=== PATIENT | male | born 1955 | race African-American/Black ===

== ENCOUNTER 2017-12-18 15:03 | Observation (INO) | payer OTHER ==
[~2017-12-18] VITALS: Ht 157.5 cm; Wt 96.0 kg
[~2017-12-18 15:03] MED LIST: HYDR-2768; OMEP20CA5; PRIN20TA2
[2017-12-18 15:13] VITALS: BP 195/94; PULSE 72; RESP 17; TEMP 98.6; O2SAT 98
[2017-12-18] MEDS ORDERED: SODIUM CHLORIDE 0.9% FLUSH 10 ML FLUSH IVF PRN (15:15)
[2017-12-18 15:20] VITALS: O2SAT 97
--- NOTE | 2017-12-18 15:27 | PD ---
HPI Chief Complaint: Chest Pain Time Seen by Provider: 15:14 Travel History International Travel<30 days: No Contact w/Intl Traveler<30days: No Traveled to known affect area: No History of Present Illness HPI 62-year-old male states he was having chest pain over the past couple of days. He received aspirin at the [place]. He denies any active chest pain now or with the ambulance team so was not given nitroglycerin. He states he is not sure if he has had a cardiac workup before. He states he is not sure if he has had heart issues before. He denies any other concurrent complaints. Quality is heaviness when present. Severity is currently resolved. Duration is couple of days. Patient is a poor historian. [facility] Past Medical History High Cholesterol: Yes Hypertension: Yes Past Surgical History Surgical History: No Previous Surgery Social History Alcohol Use: No (quit 5 years ago) Tobacco Use: No Substance Use: No Allergies-Medications (Allergen,Severity, Reaction): Coded Allergies: No Known Allergies (Verified Allergy, Mild, 12/11/06) Reported Meds & Prescriptions Reported Meds & Active Scripts Active Review of Systems Except as stated in HPI: all other systems reviewed are Neg Physical Exam Narrative GENERAL: 62-year-old male in no apparent distress SKIN: Focused skin assessment warm/dry. HEAD: Atraumatic. Normocephalic. EYES: Pupils equal and round. No scleral icterus. No injection or drainage. ENT: No nasal bleeding or discharge. Mucous membranes pink and moist. NECK: Trachea midline. CARDIOVASCULAR: Regular rate and rhythm. No murmur appreciated. RESPIRATORY: No accessory muscle use. Clear to auscultation. Breath sounds equal bilaterally. GASTROINTESTINAL: Abdomen soft, non-tender, nondistended. MUSCULOSKELETAL: No obvious deformities. No clubbing. No cyanosis. NEUROLOGICAL: Awake. Motor grossly within normal limits. Normal speech. Data Data Last Documented VS Vital Signs Date Time Temp Pulse Resp B/P (MAP) Pulse Ox O2 Delivery O2 Flow Rate FiO2 12/18/17 15:13 98.6 72 17 195/94 (127) 98 Orders Orders Electrocardiogram (12/18/17 15:15) Ckmb (Isoenzyme) Profile (12/18/17 15:15) Complete Blood Count With Diff (12/18/17 15:15) Comprehensive Metabolic Panel (12/18/17 15:15) Magnesium (Mg) (12/18/17 15:15) Prothrombin Time / Inr (Pt) (12/18/17 15:15) Act Partial Throm Time (Ptt) (12/18/17 15:15) Troponin I (12/18/17 15:15) Lipase (12/18/17 15:15) Chest, Single Ap (12/18/17 15:15) Ecg Monitoring (12/18/17 15:15) Bilateral Bp Monitoring (12/18/17 15:15) Iv Access Insert/Monitor (12/18/17 15:15) Oximetry (12/18/17 15:15) Sodium Chloride 0.9% Flush (Ns Flush) (12/18/17 15:15) Alcohol (Ethanol) (12/18/17 15:15) Drug Screen, Random Urine (12/18/17 15:15) CKMB (12/18/17 15:31) CKMB% (12/18/17 15:31) Admit Order (Ed Use Only) (12/18/17 16:37) Labs Laboratory Tests Test 12/18/17 15:31 12/18/17 16:11 White Blood Count 6.5 TH/MM3 Red Blood Count 4.46 MIL/MM3 Hemoglobin 11.9 GM/DL Hematocrit 35.5 % Mean Corpuscular Volume 79.6 FL Mean Corpuscular Hemoglobin 26.6 PG Mean Corpuscular Hemoglobin Concent 33.5 % Red Cell Distribution Width 15.5 % Platelet Count 263 TH/MM3 Mean Platelet Volume 8.8 FL Neutrophils (%) (Auto) 57.2 % Lymphocytes (%) (Auto) 28.9 % Monocytes (%) (Auto) 7.0 % Eosinophils (%) (Auto) 5.9 % Basophils (%) (Auto) 1.0 % Neutrophils # (Auto) 3.7 TH/MM3 Lymphocytes # (Auto) 1.9 TH/MM3 Monocytes # (Auto) 0.5 TH/MM3 Eosinophils # (Auto) 0.4 TH/MM3 Basophils # (Auto) 0.1 TH/MM3 CBC Comment DIFF FINAL Differential Comment Prothrombin Time 11.0 SEC Prothromb Time International Ratio 1.1 RATIO Activated Partial Thromboplast Time 29.6 SEC Blood Urea Nitrogen 9 MG/DL Creatinine 1.16 MG/DL Random Glucose 88 MG/DL Total Protein 8.0 GM/DL Albumin 4.0 GM/DL Calcium Level 8.7 MG/DL Magnesium Level 2.0 MG/DL Alkaline Phosphatase 65 U/L Aspartate Amino Transf (AST/SGOT) 18 U/L Alanine Aminotransferase (ALT/SGPT) 30 U/L Total Bilirubin 0.4 MG/DL Sodium Level 141 MEQ/L Potassium Level 3.5 MEQ/L Chloride Level 105 MEQ/L Carbon Dioxide Level 31.2 MEQ/L Anion Gap 5 MEQ/L Estimat Glomerular Filtration Rate 77 ML/MIN Total Creatine Kinase 283 U/L Creatine Kinase MB 3.6 NG/ML Troponin I LESS THAN 0.02 NG/ML Lipase 139 U/L Ethyl Alcohol Level 5 MG/DL MDM Medical Decision Making Medical Screen Exam Complete: Yes Emergency Medical Condition: Yes Medical Record Reviewed: Yes (Past history confirmed) Interpretation(s) CBC & BMP Diagram 12/18/17 15:31 Total Protein 8.0, Albumin 4.0, Calcium Level 8.7, Magnesium Level 2.0, Alkaline Phosphatase 65, Aspartate Amino Transf (AST/SGOT) 18, Alanine Aminotransferase (ALT/SGPT) 30, Total Bilirubin 0.4 Last 24 hours Impressions Chest X-Ray 12/18/17 1515 Signed Impressions: Service Date/Time: Monday, December 18, 2017 15:55 - CONCLUSION: No acute disease. John Hummel MD Differential Diagnosis CO, gastritis, musculoskeletal, pancreatitis Narrative Course We will check blood work, EKG, chest x-ray and reevaluate ED workup no acute, will place and chest pain center observation for further care given risk factors Diagnosis Primary Impression: Chest pain Qualified Codes: R07.9 - Chest pain, unspecified Admitting Information Admitting Physician Requests: Observation Elicia Lazcano MD Dec 18, 2017 15:27
[2017-12-18 15:53] LABS: AUTOMATED NEUTROPHIL # 3.7 TH/MM3 (1.8-7.7); BASOPHIL # 0.1 TH/MM3 (0-0.2); EOSINOPHIL # 0.4 TH/MM3 (0-0.4); EOSINOPHIL % 5.9 % (0.0-4.0); HEMATOCRIT 35.5 % (39.0-51.0); HEMOGLOBIN 11.9 GM/DL (13.0-17.0); LYMPH % 28.9 % (9.0-44.0); LYMPHOCYTE # 1.9 TH/MM3 (1.0-4.8); MEAN CELL VOLUME 79.6 FL (80.0-100.0); MEAN CORPUSCULAR HEMOGLOBIN 26.6 PG (27.0-34.0); MEAN CORPUSCULAR HGB CONC 33.5 % (32.0-36.0); MEAN PLATELET VOLUME 8.8 FL (7.0-11.0); MONOCYTE # 0.5 TH/MM3 (0-0.9); NEUT % 57.2 % (16.0-70.0); PLATELET COUNT 263 TH/MM3 (150-450); RED BLOOD COUNT 4.46 MIL/MM3 (4.50-5.90); RED CELL DISTRIBUTION WIDTH 15.5 % (11.6-17.2); WHITE BLOOD COUNT 6.5 TH/MM3 (4.0-11.0)
[2017-12-18 16:02] LABS: AST (GOT) 18 U/L (15-37); BICARBONATE 31.2 MEQ/L (21.0-32.0); BLOOD UREA NITROGEN 9 MG/DL (7-18); CALCIUM 8.7 MG/DL (8.5-10.1); CHLORIDE 105 MEQ/L (98-107); CREATININE 1.16 MG/DL (0.60-1.30); GLOMERULAR FILTRATION RATE 77 ML/MIN (>89); GLUCOSE,RANDOM 88 MG/DL (74-106); SODIUM (NA) 141 MEQ/L (136-145)
[2017-12-18 16:03] LABS: ALT (GPT) 30 U/L (12-78); INTERNATIONAL NORMALIZED RATIO 1.1 RATIO
[2017-12-18 16:06] LABS: ALKALINE PHOSPHATASE 65 U/L (45-117); TOTAL BILIRUBIN ADULT 0.4 MG/DL (0.2-1.0); TROPONIN I LESS THAN 0.02 NG/ML (0.02-0.05)
--- NOTE | 2017-12-18 16:14 | RADRPT ---
EXAM DATE/TIME: 12/18/2017 15:55 [facility] COMPARISON: No previous studies available for comparison. INDICATIONS : Blood pressure, sent by the dr. MEDICAL HISTORY : Diabetes mellitus type II. high blood pressure SURGICAL HISTORY : None. ENCOUNTER: Initial ACUITY: 1 day PAIN SCORE: 0/10 LOCATION: Bilateral chest FINDINGS: A single view of the chest demonstrates the lungs to be symmetrically aerated without evidence of mas s, infiltrate or effusion. The cardiomediastinal contours are unremarkable. Osseous structures are intact. CONCLUSION: No acute disease. John Hummel MD on December 18, 2017 at 16:11 Board Certified Radiologist. This report was verified electronically.
--- NOTE | 2017-12-18 17:12 | HHI.HP ---
HPI Primary Care Physician [facility] Chief Complaint Chest pain History of Present Illness This is a 62-year-old male history of hypertension, hyperlipidemia, diabetes that presents to the ED at the request of the [facility] to be treated for hypertension. States that he went there for his regular checkup as a been trying to get his blood pressure under control. Patient readily admits he has not taken his blood pressure medicine in 4 days, states the medications were in a hotel in [facility] and he was staying in [place]. When asked specifically if he had been having any chest discomfort patient responds "no." He may be coming her to get my blood pressure under control. Then after talking longer he states "well, might have had a little chest pressure while he was laying down waiting for the ambulance." In light of lasted a couple minutes. Denies shortness of breath, nausea, or diaphoresis. Review of Systems General: Patient denies fevers, chills,, and recent travel. HEENT: Patient denies headache, sore throat, difficulty swallowing. Cardiovascular: Has the chest discomfort as mentioned above. Denies sensation of heart beating rapidly or irregularly. No syncope. Respiratory: Denies shortness of breath or inspirational chest discomfort. Denies coughing wheezing or hemoptysis. GI: Patient denies nausea, vomiting, diarrhea, abdominal pain, bloody stools. Musculoskeletal: Patient denies joint pain or edema. Denies calf pain or edema. Neurovascular: Patient denies numbness, tingling, weakness in extremities. Denies headache. Endocrine: Denies polyuria and polydipsia. Hematologic: Denies easy bruising. Skin: Denies rash or itching. Past Family Social History Allergies: Coded Allergies: No Known Allergies (Verified Allergy, Mild, 12/11/06) Past Medical History Hypertension, hyperlipidemia, diabetes. Denies known CAD. Past Surgical History Noncontributory. Reported Medications Reported Meds & Active Scripts Active Active Ordered Medications Current Medications Medications (Trade) Dose Ordered Sig/Rima Route Start Time Stop Time Status Last Admin (NS Flush) 2 ml UNSCH PRN IVF 12/18/17 15:15 Family History Denies family history of CAD. Social History Quit smoking 20 years ago and also quit drinking alcohol 20 years ago. Prior to that he was smoked about one half pack of cigarettes daily for 20 years. Denies illicit drug use. He was staying [facility] a [facility] [place] [facility] but states he was kicked out after being gone for 4 days. Physical Exam Vital Signs Vital Signs Date Time Temp Pulse Resp B/P (MAP) Pulse Ox O2 Delivery O2 Flow Rate FiO2 12/18/17 15:13 98.6 72 17 195/94 (127) 98 Physical Exam GENERAL: This is a well-nourished, well-developed patient, in no apparent distress. Patient speaks in clear complete sentences. Patient is pleasant. HEENT: Head is atraumatic and normocephalic. Neck is supple without lymphadenopathy and trachea is midline. No JVD or carotid bruits. CARDIOVASCULAR: Regular rate and rhythm without murmurs, gallops, or rubs. RESPIRATORY: Clear to auscultation. Breath sounds equal bilaterally. No wheezes , rales, or rhonchi. Chest wall is nontender. No use of accessory muscles. GASTROINTESTINAL: Abdomen is nontender, nondistended. Abdomen soft. No obvious pulsatile mass or bruit. No CVA tenderness. Strong femoral pulses bilaterally. Normal bowel sounds in all quadrants. MUSCULOSKELETAL: Patient is moving upper and lower extremities freely. No calf tenderness or edema, no Homans sign. Strong pulses in upper and lower extremities. NEUROLOGICAL: Patient is alert and oriented. Cranial nerves 2-12 are grossly intact. No focal deficits and speech is clear. SKIN: No rash and turgor is normal. Laboratory Laboratory Tests Test 12/18/17 15:31 12/18/17 16:11 White Blood Count 6.5 Red Blood Count 4.46 Hemoglobin 11.9 Hematocrit 35.5 Mean Corpuscular Volume 79.6 Mean Corpuscular Hemoglobin 26.6 Mean Corpuscular Hemoglobin Concent 33.5 Red Cell Distribution Width 15.5 Platelet Count 263 Mean Platelet Volume 8.8 Neutrophils (%) (Auto) 57.2 Lymphocytes (%) (Auto) 28.9 Monocytes (%) (Auto) 7.0 Eosinophils (%) (Auto) 5.9 Basophils (%) (Auto) 1.0 Neutrophils # (Auto) 3.7 Lymphocytes # (Auto) 1.9 Monocytes # (Auto) 0.5 Eosinophils # (Auto) 0.4 Basophils # (Auto) 0.1 CBC Comment DIFF FINAL Differential Comment Prothrombin Time 11.0 Prothromb Time International Ratio 1.1 Activated Partial Thromboplast Time 29.6 Blood Urea Nitrogen 9 Creatinine 1.16 Random Glucose 88 Total Protein 8.0 Albumin 4.0 Calcium Level 8.7 Magnesium Level 2.0 Alkaline Phosphatase 65 Aspartate Amino Transf (AST/SGOT) 18 Alanine Aminotransferase (ALT/SGPT) 30 Total Bilirubin 0.4 Sodium Level 141 Potassium Level 3.5 Chloride Level 105 Carbon Dioxide Level 31.2 Anion Gap 5 Estimat Glomerular Filtration Rate 77 Total Creatine Kinase 283 Creatine Kinase MB 3.6 Troponin I LESS THAN 0.02 Lipase 139 Ethyl Alcohol Level 5 Urine Opiates Screen NEG Urine Barbiturates Screen NEG Urine Amphetamines Screen NEG Urine Benzodiazepines Screen NEG Urine Cocaine Screen NEG Urine Cannabinoids Screen NEG Result Diagram: 12/18/17 1531 12/18/17 1531 Imaging Last 48 hours Impressions Chest X-Ray 12/18/17 1515 Signed Impressions: Service Date/Time: Monday, December 18, 2017 15:55 - CONCLUSION: No acute disease. John Hummel MD Course Initial EKG is sinus rhythm with right bundle branch block. Caprini VTE Risk Assessment Caprini VTE Risk Assessment: Mod/High Risk (score >= 2) Caprini Risk Assessment Model Point Value = 1 Point Value = 2 Point Value = 3 Point Value = 5 Age 41-60 Minor surgery BMI > 25 kg/m2 Swollen legs Varicose veins or History of unexplained or recurrent spontaneous Oral contraceptives or hormone replacement Sepsis (< 1 month) Serious lung disease, including pneumonia (< 1 month) Abnormal pulmonary function Acute myocardial infarction Congestive heart failure (< 1 month) History of inflammatory bowel disease Medical patient at bed rest Age 61-74 Arthroscopic surgery Major open surgery (> 45 min) Laparoscopic surgery (> 45 min) Malignancy Confined to bed (> 72 hours) Immobilizing plaster cast Central venous access Age >= 75 History of VTE Family history of VTE Factor V Leiden Prothrombin [id number] Lupus anticoagulant Anticardiolipin antibodies Elevated serum homocysteine Heparin-induced thrombocytopenia Other congenital or acquired thrombophilia Stroke (< 1 month) Elective arthroplasty Hip, pelvis, or leg fracture Acute spinal cord injury (< 1 month) Prophylaxis Regimen Total Risk Factor Score Risk Level Prophylaxis Regimen 0-1 Low Early ambulation 2 Moderate Order ONE of the following: *Sequential Compression Device (SCD) *Heparin 5000 units SQ BID 3-4 Higher Order ONE of the following medications: *Heparin 5000 units SQ TID *Enoxaparin/Lovenox 40 mg SQ daily (WT < 150 kg, CrCl > 30 mL/min) *Enoxaparin/Lovenox 30 mg SQ daily (WT < 150 kg, CrCl > 10-29 mL/min) *Enoxaparin/Lovenox 30 mg SQ BID (WT < 150 kg, CrCl > 30 mL/min) AND/OR *Sequential Compression Device (SCD) 5 or more Highest Order ONE of the following medications: *Heparin 5000 units SQ TID (Preferred with Epidurals) *Enoxaparin/Lovenox 40 mg SQ daily (WT < 150 kg, CrCl > 30 mL/min) *Enoxaparin/Lovenox 30 mg SQ daily (WT < 150 kg, CrCl > 10-29 mL/min) *Enoxaparin/Lovenox 30 mg SQ BID (WT < 150 kg, CrCl > 30 mL/min) AND *Sequential Compression Device (SCD) Assessment and Plan Assessment and Plan * Chest pain: Initially patient denied having chest discomfort but then could recall having some chest pressure that may have lasted a couple minutes while he was lying down waiting for the ambulance to pick him up and transported him to the hospital for hypertension. He will be seen by Dr. Lujan of cardiology in the chest pain center. He will have likely serial cardiac enzymes and EKGs for ruling out purposes, however patient is actively considering leaving at this time AGAINST MEDICAL ADVICE and states he does not want to have a stress test in the morning. * Hypertension: Resume medication. * Hyperlipidemia: Resume medication. * Diabetes: Patient will be on sliding scale insulin coverage while in chest pain center. Follow diabetic diet. Resume medication at discharge. Patient is stable at this time. He is agreeable to this plan. Sascha Hahn Dec 18, 2017 17:12
[2017-12-18] MEDS ORDERED: ACETAMINOPHEN 500 MG CPLT PO PRN (17:15)
[2017-12-18] MEDS ORDERED: ALPRAZolam 0.25 MG TAB PO PRN (17:15)
[2017-12-18] MEDS ORDERED: ACETAMINOPHEN/HYDROcodone 325 MG/7.5 MG TAB PO PRN (17:15)
[2017-12-18] MEDS ORDERED: amLODIPine BESYLATE 5 MG TAB PO ONE (17:15)
[2017-12-18] MEDS ORDERED: ONDANSETRON HCL 4 MG/2 ML VIAL IV PUSH PRN (17:15)
[2017-12-18 17:31] VITALS: BP 193/97; PULSE 72; RESP 17; O2SAT 98
[2017-12-18] MEDS ORDERED: GABA300C5 PO (17:36)
[2017-12-18] MEDS ORDERED: ATEN1TAB74 PO (17:36)
[2017-12-18] MEDS ORDERED: VIAG100T PO (17:36)
[2017-12-18] MEDS ORDERED: ASPI81TA22 PO (17:36)
[2017-12-18] MEDS ORDERED: GLIP5 PO (17:36)
[2017-12-18] MEDS ORDERED: ALLO300 PO (17:36)
[2017-12-18] MEDS ORDERED: TRAM50TA PO (17:36)
[2017-12-18] MEDS ORDERED: LISI40TA PO (17:36)
[2017-12-18] MEDS ORDERED: LIPI10TA PO (17:36)
[2017-12-18] MEDS ORDERED: ZOLO50TA PO (17:36)
[2017-12-18] MEDS ORDERED: PRIL20TA2 PO (17:36)
[2017-12-18 18:28] VITALS: BP 186/96; PULSE 72; RESP 18; O2SAT 98
[2017-12-18 19:22] LABS: TROPONIN I LESS THAN 0.02 NG/ML (0.02-0.05)
[2017-12-18 21:45] VITALS: BP 188/96; PULSE 79; RESP 18; O2SAT 100
[2017-12-18 22:44] LABS: TROPONIN I LESS THAN 0.02 NG/ML (0.02-0.05)
[2017-12-19 02:45] VITALS: PULSE 73
[2017-12-19 04:28] VITALS: BP 174/94; PULSE 79; RESP 16; O2SAT 97
[2017-12-19] MEDS ORDERED: PILL SPLITTER OTHER PRN (07:30)
[2017-12-19 08:00] VITALS: PULSE 78
[2017-12-19 08:19] VITALS: BP 205/97; PULSE 72; RESP 18; TEMP 98.4; O2SAT 99
[2017-12-19] MEDS ORDERED: SERTRALINE HCL 50 MG TAB PO SCH (09:00)
[2017-12-19] MEDS ORDERED: LISINOPRIL 20 MG TAB PO SCH (09:00)
[2017-12-19] MEDS ORDERED: ATENOLOL 50 MG TAB PO SCH (09:00)
[2017-12-19] MEDS ORDERED: PANTOPRAZOLE SOD 20 MG DELAYED RELEASE TAB PO SCH (09:00)
[2017-12-19] MEDS ORDERED: ASPIRIN 325 MG TAB PO SCH (09:00)
[2017-12-19] MEDS ORDERED: REGADENOSON INJ 0.4 MG/5 ML SYR ONE (10:35)
[2017-12-19] MEDS ORDERED: AMINOPHYLLINE INJ 500 MG/20 ML VIAL ONE (10:49)
--- NOTE | 2017-12-19 11:55 | RADRPT ---
EXAM DATE/TIME: 12/19/2017 10:03 [facility] COMPARISON: No previous studies available for comparison. INDICATIONS : Chest pain. Angina. DOSE: 25.9 mCi Tc99m Myoview at stress. 8.3 mCi Tc99m Myoview at rest. 0.4 mg Lexiscan STRESS SYMPTOMS: Dyspnea, chest pain and headache. MEDICATIONS: 1.) 100 mg Aminophylline IV EJECTION FRACTION: 50% MEDICAL HISTORY : Hypercholesterolemia. SURGICAL HISTORY : Carpal tunnel syndrome. ENCOUNTER: Initial ACUITY: 2 days PAIN SCALE: 4/10 LOCATION: chest TECHNIQUE: The patient underwent pharmacologic stress with infusion of prescribed dose. Continuous ECG tracing was monitored during stress. Gated SPECT imaging was performed after stress and conventional SPECT i maging was performed at rest. The examination was performed on a SPECT/CT scanner, both attenuation and non-corrected datasets were reviewed. FINDINGS: DISTRIBUTION: The maximum perfused segment at stress is in the septal wall. PERFUSION STUDY: The pattern of perfusion at stress is within normal limits. GATED STUDY: There is intact wall motion and thickening without hypokinetic or dyskinetic segments. CONCLUSION: 1. No evidence for ischemia or infarction. 2. Intact wall motion with EF of 50%. RISK CATEGORY: Low (<1% Annual Mortality Rate) Rakan Ramsey MD on December 19, 2017 at 11:38 Board Certified Radiologist. This report was verified electronically.
--- NOTE | 2017-12-19 12:02 | HHI.DCPOC ---
Discharge Care Plan Diagnosis: (1) Chest pain (2) Hypertension (3) Hyperlipidemia (4) DM (diabetes mellitus) Goals to Promote Your Health * To prevent worsening of your condition and complications * To maintain your health at the optimal level Directions to Meet Your Goals Take your medications as prescribed Follow your dietary instruction Follow activity as directed Keep your appointments as scheduled Take your immunizations and boosters as scheduled If your symptoms worsen call your PCP, if no PCP go to Urgent Care Center or Emergency Room Smoking is Dangerous to Your Health. Avoid second hand smoke Call the 24-hour hour crisis hotline for domestic abuse at Sascha Hahn Dec 19, 2017 12:02
[2017-12-19] MEDS ORDERED: AMLO5TAB2 PO (12:05)
[2017-12-19 12:53] VITALS: BP 181/86; PULSE 65; RESP 18; TEMP 97.4; O2SAT 97
[2017-12-19] MEDS ORDERED: ATORVASTATIN 10 MG TAB PO SCH (21:00)
[2017-12-19] MEDS ORDERED: GABAPENTIN 300 MG CAP PO SCH (21:00)
--- NOTE | 2017-12-19 22:56 | EKG ---
Date Performed: 12/18/2017 Time Performed: 15:28:29 PTAGE: 62 years EKG: Sinus rhythm RIGHT BUNDLE BRANCH BLOCK MODERATE VOLTAGE CRITERIA FOR LVH, CONSIDER NORMAL VARIANT ABNORMAL ECG PREVIOUS TRACING : 12/11/2006 11.23 Since the previous tracing, no significant change noted DOCTOR: Ian Ernst Interpretating Date/Time 12/19/2017 22:55:47
--- NOTE | 2017-12-20 10:02 | EKG ---
Date Performed: 12/18/2017 Time Performed: 21:51:57 PTAGE: 62 years EKG: Sinus rhythm MARKED LEFT AXIS DEVIATION RIGHT BUNDLE BRANCH BLOCK MODERATE VOLTAGE CRITERIA FOR LVH, CONSIDER NOR MAL VARIANT ABNORMAL ECG PREVIOUS TRACING : 12/18/2017 18.24 Since previous tracing, no significant change noted DOCTOR: Maldonado Pruitt Interpretating Date/Time 12/20/2017 09:59:49
--- NOTE | 2017-12-20 10:02 | EKG ---
Date Performed: 12/18/2017 Time Performed: 18:24:43 PTAGE: 62 years EKG: Sinus rhythm RIGHT BUNDLE BRANCH BLOCK MINIMAL VOLTAGE CRITERIA FOR LVH, CONSIDER NORMAL VARIANT ABNORMAL ECG PREVIOUS TRACING : 12/18/2017 15.28 Since previous tracing, no significant change noted DOCTOR: Maldonado Pruitt Interpretating Date/Time 12/20/2017 10:00:15
--- NOTE | 2017-12-20 10:03 | TR ---
Date Performed: 12/19/2017 Time Performed: 10:35:24 DOCTOR: Maldonado Pruitt DRUG LIST: CLINICAL HISTORY: REASON FOR TEST: CHEST PAIN REASON FOR ENDING: OBSERVATION: CONCLUSION: COMMENTS: RBBB noted throughout testing. No ST segment changes to suggest ischemia
== END 2017-12-19 14:51 | disposition home or self-care (01) ==
LOC: NEPC 15:03 → NEDA 16:38 → NEPGCP 19:13
PROVIDERS: ADMIT Internal Medicine Interventional Cardiology; ATTEND Internal Medicine Interventional Cardiology
DX: R07.89 Other chest pain (principal); I10 Essential (primary) hypertension; E78.00 Pure hypercholesterolemia, unspecified; E11.9 Type 2 diabetes mellitus without complications; I45.10 Unspecified right bundle-branch block; R94.31 Abnormal electrocardiogram [ECG] [EKG]; Z87.891 Personal history of nicotine dependence
CPT/HCPCS: 71045; 78452; 80053; 80307; 82550; 82552; 82948; 83690; 83735; 84484; 85025; 85610; 85730; 93005; 93017; 99285; A9502; G0378; J0280; J2785